=== PATIENT | male | born 1950 | race Caucasian/White ===

== ENCOUNTER 2018-02-06 07:12 | Outpatient (CLI) | payer OTHER ==
[~2018-02-06 07:12] MED LIST: PREDNISON PO
== END 2018-02-06 07:25 | disposition home or self-care (01) ==
LOC: TOM 07:12
DX: R10.13 Epigastric pain (principal); R10.31 Right lower quadrant pain
CPT/HCPCS: 74177; Q9965

== ENCOUNTER 2018-02-25 07:18 | Outpatient (CLI) | payer OTHER | END 2018-02-25 08:48 | disposition home or self-care (01) | LOC: TOM 07:18 | DX: R51 Headache (principal); I72.2 Aneurysm of renal artery | CPT/HCPCS: 70450; 74160; Q9965 ==

== ENCOUNTER 2018-03-24 14:12 | Outpatient (CLI) | payer OTHER | END 2018-03-24 14:22 | disposition home or self-care (01) | LOC: SONOGRAMA 14:12 | DX: C64.1 Malignant neoplasm of right kidney, except renal pelvis (principal) ==

== ENCOUNTER 2018-03-25 07:51 | Outpatient (CLI) | payer OTHER | END 2018-03-25 08:18 | disposition home or self-care (01) | LOC: TOM 07:51 | DX: C64.1 Malignant neoplasm of right kidney, except renal pelvis (principal) | CPT/HCPCS: 74178; Q9965 ==

== ENCOUNTER → 2018-07-09 | Outpatient (CLI) | payer OTHER | END | disposition home or self-care (01) | LOC: MRI 10:45 | DX: M25.561 Pain in right knee (principal); M25.562 Pain in left knee | CPT/HCPCS: 73721 ==

== ENCOUNTER 2018-07-23 08:03 | Outpatient (CLI) | payer OTHER | END 2018-07-23 09:36 | disposition home or self-care (01) | LOC: TOM 08:03 | DX: N40.0 Benign prostatic hyperplasia without lower urinary tract symptoms (principal); C64.1 Malignant neoplasm of right kidney, except renal pelvis | CPT/HCPCS: 74160; Q9965 ==

== ENCOUNTER 2018-07-24 12:15 | Outpatient (CLI) | payer OTHER | END 2018-07-24 12:31 | disposition home or self-care (01) | LOC: RAD 12:15 | DX: R07.89 Other chest pain (principal) ==